=== PATIENT | female | born 1965 | race Caucasian/White ===

== ENCOUNTER 2021-10-27 10:39 | Emergency (ER) | payer OTHER ==
[~2021-10-27] VITALS: Ht 167.6 cm; Wt 67.6 kg
--- NOTE | 2021-10-27 10:50 | NUR ---
The patient is presented to ER for "Been having spasm/nausea/vomiting since last night worse now". Denies pain. In room air and denies SOB. Respiration regular and unlabored. The patient is attached to the monitor. Warm blanket provided for comfort. Will continue to monitor the patient.
[2021-10-27] MEDS ORDERED: ONDANSETRON HCL/PF 4 MG/2 ML VIAL IVP ONE (11:00)
[2021-10-27] MEDS ORDERED: LORAZEPAM INJ 2 MG/ML VIAL IV ONE (11:00)
[2021-10-27] MEDS ORDERED: IV NS 0.9% 1,000 ML BAG IV ONE (11:00)
[2021-10-27] MEDS ORDERED: ONDANSETRON HCL/PF 4 MG/2 ML VIAL ONE ×2 (11:08→12:58)
[2021-10-27] MEDS ORDERED: LORAZEPAM INJ 2 MG/ML VIAL ONE (11:10)
[2021-10-27 11:31] LABS: BASOPHILS # (AUTO) 0.1 K/uL (0.0-0.2); BASOPHILS % (AUTO) 0.5 % (0.0-2.0); EOSINOPHILS % (AUTO) 0.4 % (0.0-6.0); HEMATOCRIT 34 % (33-45); HEMOGLOBIN 11.1 g/dL (11.5-14.8); LYMPHOCYTES # (AUTO) 1.1 K/uL (0.8-4.8); LYMPHOCYTES % (AUTO) 7.8 % (20.0-44.0); MEAN CORPUSCULAR HGB CONC 32 g/dl (31.0-36.0); MEAN CORPUSCULAR VOLUME 83 fL (82-100); MONOCYTES # (AUTO) 0.9 K/uL (0.1-1.30); MONOCYTES % (AUTO) 6.4 % (2.0-12.0); NEUTROPHILS % (AUTO) 84.9 % (43.0-81.0); PLATELET COUNT (AUTO) 389 K/uL (150-450); RED BLOOD CELL COUNT(AUTO) 4.15 MIL/uL (4.0-5.2); WHITE BLOOD COUNT (AUTO) 14.2 K/uL (4.3-11.0)
[2021-10-27 11:42] LABS: CALCIUM, SERUM 9.4 mg/dL (8.5-10.1); POTASSIUM 3.2 mmol/L (3.5-5.1)
[2021-10-27 11:47] LABS: ALBUMIN 3.9 g/dL (3.4-5.0); BILIRUBIN,DIRECT 0.2 mg/dL (0.0-0.2); BILIRUBIN,TOTAL 0.7 mg/dL (0.2-1.0); TOTAL PROTEIN, SERUM 7.8 g/dL (6.4-8.2)
--- NOTE | 2021-10-27 11:59 | NUR ---
THE PATIENT STATES THAT SHE IS NOT ABLE TO GIVE URINE AT THIS TIME. WILL CONTINUE TO FOLLOW UP WITH THE PATIENT TO GET URINE SPECIMEN.
--- NOTE | 2021-10-27 12:55 | NUR ---
URINE COLLECTED AND SENT TO THE LAB
[2021-10-27] MEDS ORDERED: MORPHINE SULFATE INJ 4 MG/ML DISP.SYRIN ONE ×2 (12:59→13:53)
[2021-10-27] MEDS ORDERED: MORPHINE SULFATE INJ 2 MG/ML DISP.SYRIN IV ONE ×2 (13:00→14:00)
[2021-10-27] MEDS ORDERED: ONDANSETRON HCL/PF - ER 4 MG/2 ML VIAL IV ONE (13:00)
[2021-10-27 13:52] LABS: BILIRUBIN,URINE NEGATIVE (NEGATIVE); COLOR,URINE YELLOW (YELLOW); LEUKOCYTE ESTERASE ,URINE SMALL (NEGATIVE); NITRITE, URINE NEGATIVE (NEGATIVE); PH,URINE 8.5 (5.0-8.0); PROTEIN,URINE TRACE mg/dl (NEGATIVE); UGLUCOSE NEGATIVE (NEGATIVE); UROBILINOGEN,URINE 0.2 EU/dL (0.2)
[2021-10-27] MEDS ORDERED: KETOROLAC TROMETHAMINE 15 MG/ML VIAL ONE (14:25)
[2021-10-27] MEDS ORDERED: HYDROMORPHONE 1 MG/1 ML DISP.SYRIN ONE (14:25)
[2021-10-27] MEDS ORDERED: POTASSIUM CHLORIDE 20 MEQ TAB.PRT.SR PO ONE ×2 (14:30→14:39)
[2021-10-27] MEDS ORDERED: METOCLOPRAMIDE HCL 10 MG/2 ML VIAL ONE (14:39)
[2021-10-27] MEDS ORDERED: POTASSIUM CHLORIDE 10 MEQ TABLET.SA ONE (14:39)
--- NOTE | 2021-10-27 14:47 | NUR ---
The patient is alert and oriented x4. In room air and denies SOB. Respiration regular and unlabored. the patient denies pain. IV removed. Catheter intact and site benign. Pressure and 4x4 applied to site. No bleeding noted.Patient discharged to home in stable condition. Written and verbal after care instructions given. Patient verbalizes understanding of instruction. The patient is picked up by her visitor services technician.
[2021-10-27 14:48] LABS: BACTERIA,URINE Few /HPF (None Seen); RBC,URINE 0-2 /HPF (0-2); SQUAMOUS EPITHELIAL CELL,UR Few /HPF (None Seen)
[2021-10-27 14:49] VITALS: BP 103/75
[2021-10-27] MEDS ORDERED: METOCLOPRAMIDE HCL 10 MG/2 ML VIAL IV ONE (15:00)
== END 2021-10-27 14:50 | disposition home or self-care (01) ==
LOC: ER 10:46
DX: R11.2 Nausea with vomiting, unspecified (principal); M62.838 Other muscle spasm; E87.6 Hypokalemia; G20 Parkinson's disease
CPT/HCPCS: 99284; 96374; 96375; 96361; 96376; 85025; 80048; 87086; 83690; 80076; 81001; 36415; J2060; J2270 ×2; J2765; J2405 ×3; J7030; J1170; J1885

== ENCOUNTER 2021-11-01 09:57 | Emergency (ER) | payer OTHER ==
[~2021-11-01] VITALS: Ht 167.6 cm; Wt 67.6 kg
--- NOTE | 2021-11-01 10:04 | NUR ---
BIBS C/O GENERALIZED PAIN FROM PARKINSON'S FLARE UP, STATED SHE TOOK A TORADOL SHORT YESTERDAT AT 1700 AND HAD NO RELIEF.
--- NOTE | 2021-11-01 10:10 | NUR ---
DR VALENCIA AT BEDSIDE
[2021-11-01] MEDS ORDERED: KETOROLAC TROMETHAMINE INJ 30 MG/ML VIAL IV ONE (10:30)
[2021-11-01] MEDS ORDERED: LORAZEPAM INJ 2 MG/ML VIAL IV ONE ×3 (10:30→14:30)
[2021-11-01] MEDS ORDERED: LORAZEPAM INJ 2 MG/ML VIAL ONE ×3 (10:37→14:35)
[2021-11-01] MEDS ORDERED: KETOROLAC TROMETHAMINE 15 MG/ML VIAL ONE (10:38)
[2021-11-01 10:49] LABS: BASOPHILS # (AUTO) 0.1 K/uL (0.0-0.2); BASOPHILS % (AUTO) 0.8 % (0.0-2.0); EOSINOPHILS % (AUTO) 2.6 % (0.0-6.0); HEMATOCRIT 35 % (33-45); HEMOGLOBIN 10.9 g/dL (11.5-14.8); LYMPHOCYTES # (AUTO) 1.7 K/uL (0.8-4.8); LYMPHOCYTES % (AUTO) 16.7 % (20.0-44.0); MEAN CORPUSCULAR HGB CONC 31 g/dl (31.0-36.0); MEAN CORPUSCULAR VOLUME 88 fL (82-100); MONOCYTES % (AUTO) 9.4 % (2.0-12.0); NEUTROPHILS # (AUTO) 7.4 K/uL (1.8-8.9); NEUTROPHILS % (AUTO) 70.5 % (43.0-81.0); PLATELET COUNT (AUTO) 325 K/uL (150-450); RED BLOOD CELL COUNT(AUTO) 3.94 MIL/uL (4.0-5.2); WHITE BLOOD COUNT (AUTO) 10.4 K/uL (4.3-11.0)
[2021-11-01 10:58] LABS: CALCIUM, SERUM 8.6 mg/dL (8.5-10.1); CREATININE 1.1 mg/dL (0.6-1.3); POTASSIUM 3.8 mmol/L (3.5-5.1)
[2021-11-01 10:59] LABS: MAGNESIUM 2.6 mg/dL (1.8-2.4)
[2021-11-01] MEDS ORDERED: ONDANSETRON HCL/PF 4 MG/2 ML VIAL ONE ×2 (12:21→13:32)
[2021-11-01] MEDS ORDERED: MORPHINE SULFATE INJ 2 MG/ML DISP.SYRIN ONE (12:21)
[2021-11-01] MEDS ORDERED: ONDANSETRON HCL/PF - ER 4 MG/2 ML VIAL IV ONE ×2 (12:30→13:30)
[2021-11-01] MEDS ORDERED: MORPHINE SULFATE INJ 2 MG/ML DISP.SYRIN IV ONE (12:30)
[2021-11-01] MEDS ORDERED: DIAZ2TAB PO (14:45)
[2021-11-01 15:48] VITALS: BP 135/81
--- NOTE | 2021-11-01 15:48 | NUR ---
Patient discharged to home in stable condition. Written and verbal after care instructions given. Patient verbalizes understanding of instruction.IV removed. Catheter intact and site benign. Pressure and 4x4 applied to site. No bleeding noted.
== END 2021-11-01 15:48 | disposition home or self-care (01) ==
LOC: ER 10:10
DX: M62.838 Other muscle spasm (principal); R52 Pain, unspecified; Z79.899 Other long term (current) drug therapy
CPT/HCPCS: 99285; 96374; 96375; 96376; 85025; 80048; 83735; 36415; J2060 ×3; J2405 ×4; J2270; J1885

== ENCOUNTER 2021-11-21 18:12 | Emergency (ER) | payer OTHER ==
[~2021-11-21] VITALS: Ht 167.6 cm; Wt 69.9 kg
[~2021-11-21 18:12] MED LIST: DIAZ2TAB PO
--- NOTE | 2021-11-21 18:40 | NUR ---
RECEIVED PT IN ROOM #3 ER, PT IS A/Ox4, C/O MUSCLE SPASM DUE TO PARKINSONS DIS. VSS STABLE , CONTINUE TO MONITOR
[2021-11-21] MEDS ORDERED: LORAZEPAM INJ 2 MG/ML VIAL ONE (18:56)
[2021-11-21] MEDS: LORAZEPAM INJ 2 MG/ML VIAL IM ONE (19:02)
--- NOTE | 2021-11-21 19:13 | NUR ---
PT ON BED , VSS STABLE , WILL ENDORSE TO VIDEO TAPE EDITOR NURSE FOR CONTINUITY OF CARE
[2021-11-21] MEDS ORDERED: TRAM50TA2 PO (19:38)
[2021-11-21] MEDS ORDERED: DIAZ10TA PO (19:38)
[2021-11-21] MEDS ORDERED: TRAMADOL HCL 50 MG TABLET ONE (19:53)
[2021-11-21] MEDS: TRAMADOL HCL 50 MG TABLET PO ONE (19:56)
[2021-11-21 20:09] VITALS: BP 138/80
--- NOTE | 2021-11-21 20:09 | NUR ---
Patient discharged to home in stable condition. Written and verbal after care instructions given. Patient verbalizes understanding of instruction.
== END 2021-11-21 20:10 | disposition home or self-care (01) ==
LOC: ER 18:21
DX: G20 Parkinson's disease (principal); M62.838 Other muscle spasm; G89.29 Other chronic pain; Z79.899 Other long term (current) drug therapy
CPT/HCPCS: 99283; 96372; J2060; J7030

== ENCOUNTER 2021-12-26 16:04 | Inpatient (IN) | payer OTHER ==
[~2021-12-26] VITALS: Ht 162.6 cm; Wt 69.4 kg
[~2021-12-26 16:04] MED LIST changes: +DIAZ10TA PO; +TRAM50TA2 PO
[2021-12-26] MEDS ORDERED: HYDROCODONE/APAP 10/325MG TABLET ONE (16:26)
[2021-12-26] MEDS ORDERED: KETOROLAC TROMETHAMINE INJ 30 MG/ML VIAL ONE (16:27)
[2021-12-26] MEDS ORDERED: HYDROCODONE/APAP 10/325MG TABLET PO ONE (16:30)
[2021-12-26] MEDS ORDERED: KETOROLAC TROMETHAMINE INJ 30 MG/ML VIAL IM ONE (16:30)
--- NOTE | 2021-12-26 16:59 | NUR ---
Patient arrived to ER in pain and requesting medications, analgesic medications administered as ordered and cold packs applied to left knee and ankle
[2021-12-26] MEDS ORDERED: HYDROMORPHONE 1 MG/1 ML DISP.SYRIN ONE (17:05)
[2021-12-26] MEDS ORDERED: HYDROMORPHONE 1 MG/1 ML DISP.SYRIN IM ONE (17:30)
--- NOTE | 2021-12-26 17:32 | NUR ---
PAGE ORTHO BINGO ATTENDANT
[2021-12-26] MEDS ORDERED: DIAZEPAM 5 MG TABLET ONE (18:07)
[2021-12-26 18:18] LABS: BASOPHILS % (AUTO) 0.2 % (0.0-2.0); EOSINOPHILS % (AUTO) 0.2 % (0.0-6.0); HEMATOCRIT 34 % (33-45); HEMOGLOBIN 10.8 g/dL (11.5-14.8); LYMPHOCYTES # (AUTO) 1.7 K/uL (0.8-4.8); LYMPHOCYTES % (AUTO) 8.5 % (20.0-44.0); MEAN CORPUSCULAR HGB CONC 32 g/dl (31.0-36.0); MEAN CORPUSCULAR VOLUME 85 fL (82-100); MONOCYTES # (AUTO) 1.5 K/uL (0.1-1.30); MONOCYTES % (AUTO) 7.2 % (2.0-12.0); NEUTROPHILS # (AUTO) 17.2 K/uL (1.8-8.9); NEUTROPHILS % (AUTO) 83.9 % (43.0-81.0); RED BLOOD CELL COUNT(AUTO) 4.04 MIL/uL (4.0-5.2); WHITE BLOOD COUNT (AUTO) 20.5 K/uL (4.3-11.0)
[2021-12-26] MEDS ORDERED: DIAZEPAM 5 MG TABLET PO ONE (18:30)
[2021-12-26 18:34] LABS: CALCIUM, SERUM 8.8 mg/dL (8.5-10.1); POTASSIUM 3.6 mmol/L (3.5-5.1)
[2021-12-26 18:50] LABS: PLATELET COUNT (AUTO) 491 K/uL (150-450)
--- NOTE | 2021-12-26 18:50 | NUR ---
COVID SWAB DONE
[2021-12-26] MEDS ORDERED: MORPHINE SULFATE INJ 2 MG/ML DISP.SYRIN IV ONE (19:30)
[2021-12-26] MEDS ORDERED: MORPHINE SULFATE INJ 4 MG/ML DISP.SYRIN ONE (19:31)
[2021-12-26] MEDS ORDERED: Z GUARD REMEDY 4 OZ OINT TP PRN (20:00)
[2021-12-26] MEDS ORDERED: MAGNESIUM HYDROXIDE 30 ML UDC PO PRN (20:00)
--- NOTE | 2021-12-26 20:21 | NUR ---
BED 304-2
--- NOTE | 2021-12-26 20:29 | NUR ---
REPORT GIVEN TO RAFAL CALVERT
--- NOTE | 2021-12-26 20:45 | NUR ---
PATIENT TRANSFERRED, NO ACUTE DISTRESS NOTTED.
[2021-12-26] MEDS: HYDROMORPHONE INJ 2 MG/ML DISP.SYRIN IV PRN (21:03)
[2021-12-26] MEDS: IV NS 0.9% 1,000 ML IV PRN (21:11)
[2021-12-26] MEDS: HYDROCODONE/APAP 10/325MG TABLET PO PRN (22:33)
[2021-12-26] MEDS ORDERED: CEFAZOLIN 2 GM ONE (22:47)
[2021-12-26] MEDS: CEFAZOLIN 1 GM in IV D5W 50 ML IV SCH (23:35)
--- NOTE | 2021-12-27 00:10 | NUR ---
RN NOTE PT A/O X4 ABLE TO MAKE NEED KNOWN PT KEEPS CRYING AND SEEMS VERY ANXIOUS AND SCARED AT THE POSSIBILITY OF SURGERY PRN MEDICATION PROVIDED COMFORT CARE PROVIDED BUT PT IS UN CONSOLABLE AT THIS TIME. PT NOTED WITH IV ACCESS ON THE LAC 22 G RUNNING NS @90 ML/HR TOLERATING WELL. [facility] WITHIN REACH TABLE WITHIN REACH. ALL NEEDS MET.
[2021-12-27] MEDS ORDERED: DIAZEPAM 5 MG TABLET PO ONE (00:30)
--- NOTE | 2021-12-27 00:45 | NUR ---
RN NOTES PT CRYING UN CONSOLABLY VERY UP SET WITH STAFF PT KEEPS STATING " YOU ALL KEEP SAYING IN HAVING SURGERY ON TUESDAY I HAVEN'T EVEN SEEN A DR I DON'T APPRECIATE BEING BERATED" TRIED TO COMFORT PT AND RESTATED TO HER THAT WE DON'T NOT KNOW YET THAT SHE WILL HAVE A CONSULT WITH THE SURGEON WHO CAN GIVE HER MORE INFORMATION. HOWEVER PT IS VERY UPSET AND START CRYING MORE STATING " IM SCARED THIS WHOLE EXPERIENCE IS SCARY IM SORRY IF IM BEING RUDE TO YOU BUT YOU HAVE TO UNDERSTAND" PT CONTINUOS TO CRY. RECEIVED AND ORDER FROM VIJAYA NELSON FOR VALIUM 5MG X1 OFFERED VALUIM TO THE PT PT BECAME UPSET " ARE YOU SAYING MY PAIN ISN'T REAL SO YOUR GIVING ME ANXIETY MEDICATION I KNOW ABOUT ANXIETY I'VE HAD IT FOR 20 YEARS I DON'T NEED YOU TO TELL ME IM ANXIOUS I KNOW!" EXPLAINED TO PT THAT WAS NOT THE INTENTION AND THAT SHE SHARED HOW SHE HAS BEEN HAVING A HARD DAY AND WE JUST WANTED TO MAKE HER MORE COMFORTABLE OFFERED HER IF SHE NEEDED REPOSITIONING ICE PACK ANYTHING ELSE TO HELP HER FEEL AT EASE. PT TOOK THE VALIUM BUT IS STILL VERY UPSET.CHARGE NURSE CAME IN TO SPEAK WITH PT STATED " IM NOT A GOSSIP COLUMN OR SOMETHING FOR ALL YOU PEOPLE TO COME IN HERE AND STARE AND LAUGH AT ME" TOLD THE PT WE WOULD GIVE HER SOME SPACE TO COOL DOWN AND WILL COME BACK ONCE SHE FEELS LIKE SHE IS READY TO SPEAK TO ME.PT KEEPS MISINTERPRETING EVERYTHING STAFF SAYS TO HER AT THIS TIME SHE IS TOO UPSET.
[2021-12-27 01:21] LABS: BILIRUBIN,URINE SMALL (NEGATIVE); COLOR,URINE YELLOW (YELLOW); LEUKOCYTE ESTERASE ,URINE SMALL (NEGATIVE); NITRITE, URINE NEGATIVE (NEGATIVE); PROTEIN,URINE TRACE mg/dl (NEGATIVE); UGLUCOSE NEGATIVE (NEGATIVE); UROBILINOGEN,URINE 0.2 EU/dL (0.2)
[2021-12-27 01:34] LABS: BACTERIA,URINE Few /HPF (None Seen); SQUAMOUS EPITHELIAL CELL,UR Few /HPF (None Seen)
[2021-12-27] MEDS: HYDROMORPHONE INJ 2 MG/ML DISP.SYRIN IV PRN ×5 (01:47→19:35)
--- NOTE | 2021-12-27 01:47 | NUR ---
MS RN NOTE COVERING PRIMARY RN WHILE ON LUNCH BREAK, PATIENT REPORTING 8/10 LEFT HIP AND LEG PAIN. DILAUDID 2 MG IV GIVEN ORDERED. WILL CONTINUE TO MONITOR PATIENT
--- NOTE | 2021-12-27 02:00 | NUR ---
RN NOTES PT KEEPS LAYING ON HER LEFT SIDE COMPLETELY KEEP REMINDING PT THAT SHE DOESN'T PUT PRESSURE ON THE LEFT LEG IT WILL ONLY CAUSE MORE PAIN.
[2021-12-27] MEDS: HYDROCODONE/APAP 10/325MG TABLET PO PRN ×4 (04:00→21:13)
[2021-12-27] MEDS: MAG HYDROX/AL HYDROX/SIMETH 30 ML UDC PO PRN (04:06)
[2021-12-27] MEDS: ONDANSETRON HCL/PF 4 MG/2 ML VIAL IVP PRN (04:41)
--- NOTE | 2021-12-27 04:58 | NUR ---
RN NOTE AR HAD EMESIS X2 PT UPSET CRYING " IM EMBARRASSED IM SORRY I FEEL LIKE YOU ALL HATE ME" EXPRESSED TO PT THAT WE ARE HERE TO HELP HER AND ITS NO BOTHER SHE DOESN'T HAVE TO APOLOGIZE OR FEEL BAD.PT IS CRYING TRYING TO CONSOLE HER SHE SEEMS MORE AT EASE AT THIS TIME.
[2021-12-27 06:13] LABS: BASOPHILS # (AUTO) 0.1 K/uL (0.0-0.2); BASOPHILS % (AUTO) 0.3 % (0.0-2.0); EOSINOPHILS % (AUTO) 0.1 % (0.0-6.0); HEMATOCRIT 29 % (33-45); HEMOGLOBIN 9.2 g/dL (11.5-14.8); LYMPHOCYTES # (AUTO) 1.6 K/uL (0.8-4.8); LYMPHOCYTES % (AUTO) 7.2 % (20.0-44.0); MEAN CORPUSCULAR HGB CONC 32 g/dl (31.0-36.0); MEAN CORPUSCULAR VOLUME 86 fL (82-100); MONOCYTES # (AUTO) 2.1 K/uL (0.1-1.30); MONOCYTES % (AUTO) 9.4 % (2.0-12.0); NEUTROPHILS # (AUTO) 18.8 K/uL (1.8-8.9); PLATELET COUNT (AUTO) 341 K/uL (150-450); RED BLOOD CELL COUNT(AUTO) 3.35 MIL/uL (4.0-5.2); WHITE BLOOD COUNT (AUTO) 22.6 K/uL (4.3-11.0)
[2021-12-27 06:21] LABS: CALCIUM, SERUM 8.7 mg/dL (8.5-10.1); CREATININE 1.2 mg/dL (0.6-1.3); MAGNESIUM 2.7 mg/dL (1.8-2.4); PHOSPHORUS 5.8 mg/dL (2.5-4.9); POTASSIUM 4.3 mmol/L (3.5-5.1)
[2021-12-27] MEDS: CEFAZOLIN 1 GM in IV D5W 50 ML IV SCH ×3 (06:28→21:12)
--- NOTE | 2021-12-27 06:33 | NUR ---
RN NOTE PT IN BED AWAKE IN NO NOTED DISTRESS. PRN PAIN MANAGEMENT PROVIDED NEEDS, PT HAS NOT HAD ANY OTHER EPISODES OF EMESIS OR NAUSEA. WILL ENDORSE TO DAY SHIFT NURSE.
[2021-12-27 08:00] VITALS: BP 129/64
[2021-12-27] MEDS: DIAZEPAM 2 MG TABLET PO SCH ×2 (09:22→16:32)
[2021-12-27 16:00] VITALS: BP 138/51
[2021-12-27] MEDS ORDERED: QUETIAPINE FUMARATE 25 MG TABLET PO ONE (17:00)
[2021-12-27] MEDS: DIAZEPAM 10 MG TABLET PO SCH (18:00)
--- NOTE | 2021-12-27 19:30 | NUR ---
MS RN OPENING NOTE RECEIVED PT AWAKE IN BED. A/O X4 AND ABLE TO MAKE NEEDS KNOWN. PT STABLE ON ROOM AIR. NO SOB OR S/S OF RESPIRATORY DISTRESS. BREATHING EVEN AND UNLABORED. IV ACCESS CHESTER MIDLINE, INTACT AND PATENT, RUNNING NS @ 90 ML/HR. FONG CATHETER IN PLACE, INTACT AND PATENT, DRAINING BY GRAVITY. COMPLAINTS OF PAIN 10/10 OF L KNEE, WILL ADMINISTER PAIN MEDICATION ORDERED. SAFETY PRECAUTIONS IN PLACE. BED IN LOWEST LOCKED POSITION, HOB ELEVATED, SIDE RAILS UP X3, AND CALL LIGHT AND TABLE WITHIN REACH. ALL NEEDS MET AT THIS TIME.
--- NOTE | 2021-12-27 19:33 | NUR ---
RN CLOSING NOTE PATIENT RECEIVED IN BED AND AWAKE. A/OX4 AND ABLE TO VERBALIZE ALL NEEDS, HOWEVER OBSERVED TO HAVE EXTREME ANXIOUSNESS THROUGHOUT SHIFT. IV ACCESS TO LAC DISLODGED ON SHIFT; CHANGED TO CHESTER MIDLINE 18G. CURRENTLY INTACT AND PATENT AT THIS TIME. CONTINUOUS C/O BODY PAIN THROUGHOUT SHIFT. RECEIVED PRN NORCO AND DILAUDID SCHEDULED PRN . PATIENT CLAIMED MEDICATIONS NOT EFFECTIVE. ONE TIME DOSE OF SEROQUEL 50MG ALSO GIVEN PER PHYSICIAN ORDER. MEDICATION NOT EFFECTIVE. PATIENT REFUSED TO SIGN CONSENT FOR SCHEDULED SURGERY. CHARGE NURSE AND PHYSICIAN MADE AWARE. WILL ENDORSE TO ONCOMING NURSE. FONG CATHETER IN PLACE AND FLOWING DARK YELLOW URINE. SAFETY MEASURES IN PLACE WITH BED LOW AND LOCKED. SIDE RAIL UP AND CALL LIGHT WITHIN REACH. WILL CONT TO MONITOR.
--- NOTE | 2021-12-27 19:35 | NUR ---
RN NOTE PT COMPLAINED OF PAIN 10/10 OF L KNEE. ADMINISTERED DILAUDID 2 MG FOR SEVERE PAIN ORDERED. MADE COMFORTABLE IN BED. ALL NEEDS MET AT THIS TIME.
[2021-12-27 20:00] VITALS: BP 131/77
[2021-12-27] MEDS: IV NS 0.9% 1,000 ML IV PRN (20:30)
--- NOTE | 2021-12-27 21:13 | NUR ---
RN NOTE PT COMPLAINED OF PAIN 8/10 OF L KNEE. ADMINISTERED NORCO 10-325 MG FOR SEVERE PAIN ORDERED. MADE COMFORTABLE IN BED. ALL NEEDS MET AT THIS TIME.
[2021-12-27] MEDS: ZOLPIDEM TARTRATE 5 MG TABLET PO PRN (22:16)
--- NOTE | 2021-12-27 22:16 | NUR ---
RN NOTE PT COMPLAINED OF INSOMNIA. ADMINISTERED AMBIEN 5 MG FOR INSOMNIA ORDERED. MADE COMFORTABLE IN BED. ALL NEEDS MET AT THIS TIME.
[2021-12-28] MEDS: HYDROMORPHONE INJ 2 MG/ML DISP.SYRIN IV PRN ×3 (00:53→09:07)
--- NOTE | 2021-12-28 00:53 | NUR ---
RN NOTE PT COMPLAINED OF PAIN 10/10 OF L KNEE. ADMINISTERED DILAUDID 2 MG FOR SEVERE PAIN ORDERED. BP 120/74 HR 92 R 18 O2 SAT 96% TEMP 98.0. MADE COMFORTABLE IN BED. ALL NEEDS MET AT THIS TIME.
[2021-12-28] MEDS: HYDROCODONE/APAP 10/325MG TABLET PO PRN (02:22)
--- NOTE | 2021-12-28 02:25 | NUR ---
covering nurse note patient c/o 10/10 pain in the fx area. Given norco 10 PRN as ordered. primary nurse aware.
[2021-12-28] MEDS: CEFAZOLIN 1 GM in IV D5W 50 ML IV SCH ×2 (04:56→12:08)
--- NOTE | 2021-12-28 07:10 | NUR ---
MS RN CLOSING NOTE PT AWAKE IN BED. A/O X4 AND ABLE TO MAKE NEEDS KNOWN. PT STABLE ON ROOM AIR. NO SOB OR S/S OF RESPIRATORY DISTRESS. BREATHING EVEN AND UNLABORED. IV ACCESS CHESTER MIDLINE, INTACT AND PATENT, RUNNING NS @ 90 ML/HR. FONG CATHETER IN PLACE, INTACT AND PATENT, DRAINING BY GRAVITY. ALL DUE MEDS GIVEN ORDERED. KEPT NPO AFTER MIDNIGHT. SAFETY PRECAUTIONS IN PLACE AT ALL TIMES. BED IN LOWEST LOCKED POSITION, HOB ELEVATED, SIDE RAILS UP X3, AND CALL LIGHT AND TABLE WITHIN REACH. ALL NEEDS MET AT THIS TIME AND WILL ENDORSE TO ONCOMING NURSE FOR KALEB.
--- NOTE | 2021-12-28 07:15 | NUR ---
MS RN OPENING NOTES: RECEIVED PT AWAKE, ALERT AND ORIENTED X 4 AND ABLE TO VERBALIZED NEEDS. NO SOB OR CARDIAC DISTRESS NOTED, AFEBRILE. MAINTAINED ON NPO. NOTED WITH IV ACCESS ON CHESTER MIDLINE PATENT, INTACT AND INFUSING NS @90ML/HR. NOTED WITH FC DRAINING CLEAR YELLOW COLORED URINE BY GRAVITY. SAFETY PRECAUTIONS MAINTAINED: BED LOCKED AND IN LOWEST POSITION, SIDE RAILS UP X 2 CALL LIGHT AND BED SIDE TABLE IN EASY REACH FOR HELP. WILL MONITOR PT ACCORDINGLY.
[2021-12-28 08:00] VITALS: BP 139/72
[2021-12-28 09:09] LABS: BASOPHILS % (AUTO) 0.2 % (0.0-2.0); EOSINOPHILS % (AUTO) 1.2 % (0.0-6.0); HEMATOCRIT 23 % (33-45); HEMOGLOBIN 7.2 g/dL (11.5-14.8); LYMPHOCYTES # (AUTO) 1.6 K/uL (0.8-4.8); MEAN CORPUSCULAR HGB CONC 32 g/dl (31.0-36.0); MEAN CORPUSCULAR VOLUME 85 fL (82-100); MONOCYTES # (AUTO) 1.3 K/uL (0.1-1.30); MONOCYTES % (AUTO) 8.8 % (2.0-12.0); NEUTROPHILS # (AUTO) 11.3 K/uL (1.8-8.9); NEUTROPHILS % (AUTO) 78.8 % (43.0-81.0); PLATELET COUNT (AUTO) 303 K/uL (150-450); RED BLOOD CELL COUNT(AUTO) 2.66 MIL/uL (4.0-5.2); WHITE BLOOD COUNT (AUTO) 14.3 K/uL (4.3-11.0)
[2021-12-28 09:16] LABS: CALCIUM, SERUM 8.3 mg/dL (8.5-10.1); CREATININE 0.9 mg/dL (0.6-1.3); POTASSIUM 3.5 mmol/L (3.5-5.1)
[2021-12-28 09:22] LABS: ALBUMIN 3.2 g/dL (3.4-5.0); BILIRUBIN,TOTAL 0.4 mg/dL (0.2-1.0); MAGNESIUM 2.5 mg/dL (1.8-2.4); PHOSPHORUS 3.5 mg/dL (2.5-4.9); TOTAL PROTEIN, SERUM 6.4 g/dL (6.4-8.2)
[2021-12-28] MEDS: IV NS 0.9% 1,000 ML IV PRN (09:51)
--- NOTE | 2021-12-28 09:56 | NUR ---
WOUND CARE CONSULT: PT PRESENTS WITH SKIN TEARS TO BILATERAL KNEES, PRESENT ON ADMISSION. PT REFUSED TO BE TURNED FOR FULL SKIN ASSESSMENT. RECOMMENDATIONS MADE FOR SKIN PROTECTION AND WOUND CARE. DISCUSSED WITH NURSING STAFF. MD IN AGREEMENT WITH PLAN OF CARE.
--- NOTE | 2021-12-28 09:58 | NUR ---
RN NOTES: SHEEBA (LIZETTE) ORDERED 1 PRBC TO TRANSFUSE PRIOR TO ORIF SURGERY, TYPE AND CROSS STAT. INFORMED PA THAT PT IS DUE FOR DIAZEPAM PO, PA OKAYED AND WITH VERY LITTLE WATER TO SIP. ORDERS NOTED AND CARRIED OUT. PT WENT DOWN FOR CT SCAN.
[2021-12-28] MEDS: DIAZEPAM 2 MG TABLET PO SCH ×2 (10:00→17:00)
[2021-12-28] MEDS: ONDANSETRON HCL/PF 4 MG/2 ML VIAL IVP PRN ×2 (10:18→18:45)
--- NOTE | 2021-12-28 10:30 | NUR ---
RN NOTES PATIENT SIGNED CONSENTS
[2021-12-28] MEDS ORDERED: BUPIVACAINE 0.5 % PF 150 MG/30 ML VIAL ONE (12:11)
[2021-12-28] MEDS ORDERED: POLYMYXIN B SULFATE 0 UNITS ONE (12:12)
[2021-12-28] MEDS ORDERED: HYDROMORPHONE INJ 2 MG/ML DISP.SYRIN ONE (12:33)
[2021-12-28] MEDS ORDERED: FENTANYL PF 100MCG/2ML AMPUL ONE ×2 (12:33)
[2021-12-28] MEDS ORDERED: ROCURONIUM BROMIDE 50 MG/5 ML ONE (12:34)
[2021-12-28] MEDS ORDERED: MIDAZOLAM HCL 2 MG/2ML VIAL ONE (12:34)
[2021-12-28] MEDS ORDERED: FAMOTIDINE/PF INJ 20 MG/2 ML VIAL IV ONE (12:34)
[2021-12-28] MEDS: CITALOPRAM HYDROBROMIDE 20 MG TABLET PO SCH (15:00)
[2021-12-28 17:15] VITALS: BP 106/56
--- NOTE | 2021-12-28 17:16 | NUR ---
RN NOTES: 1500- CITALOPRAM PO NOT GIVEN PT STILL IN SURGERY. 1700-DIAZEPAM PO NOT GIVEN PT VS IS LOW AND PT STILL GROGGY.
--- NOTE | 2021-12-28 17:18 | NUR ---
RN NOTES: RECEIVED PT S/P LEFT FEMUR ORIF. PT STILL GROGGY BUT ABLE TO RESPONSE TO VERBAL STIMULI. NO SOB OR CARDIAC DISTRESS NOTED. RECEIVED REPORT FROM RAFAL VARNER-PT BP IS ON LOWS,97/54, 98% O2 SATURATION AT ROOM AIR, HR 122, TEMP 97.6. NOTED WITH LEFT HIP IMMOBILIZER, DRESSING INTACT WITHOUT ANY UNUSUAL DISCHARGES. RECEIVED ORDERS POST OP: RESUME PRE POP ORDERS, ADVANCE DIET,NWM LLE, KNEE IMMOBILIZER. ANCEF 1 GRAM IVPB Q 8HRS FOR 3 DOSES-STARTED ALREADY IN OR 1330PM. IN 24HOURS IF HEMOGLOBIN LEVEL >9 START LOVENOX 40MG SQ DAILY. ORDERS NOTED AND CARRIED OUT. WILL MONITOR PT ACCORDINGLY.
[2021-12-28 17:30] VITALS: BP 106/56
--- NOTE | 2021-12-28 17:30 | NUR ---
RN NOTES: PT STILL ASLEEP EASILY AROUSED WITH STIMULI, VS BP 106/56, HR 115, RR 20, 97.8F, 98%.
[2021-12-28 18:00] VITALS: BP_SYST 104; BP_SYST 119; BP_DIAS 68; BP_DIAS 72
[2021-12-28] MEDS: DIAZEPAM 10 MG TABLET PO SCH (18:21)
--- NOTE | 2021-12-28 18:48 | NUR ---
MS RN CLOSING NOTES: PT IN BED AWAKE, ALERT ORIENTED X 4 AND ABLE TO VERBALIZED NEEDS. S/P ORIF ON LEFT FEMUR AND WITH IMMOBILIZER NOTED. NO SOB OR CARDIAC DISTRESS NOTED. IV ACCESS ON CHESTER MIDLINE PATENT AND INTACT INFUSING IV NS 1L @90ML/HR. SAFETY MEASURES MAINTAINED; BED LOCKED AND IN LOWEST POSITION, SIDE RAILS UP X 2 CALL LIGHT IN EASY REACH FOR HELP. WILL MONITOR PT ACCORDINGLY.
[2021-12-28 19:00] VITALS: BP 98/58
[2021-12-28 20:00] VITALS: BP 78/42
--- NOTE | 2021-12-28 20:00 | NUR ---
RN OPENING NOTE PATIENT AWAKE IN BED. A/OX4. NO S/S OF DISTRESS, BREATHING WITHOUT DIFFICULTY ON ROOM AIR. CHESTER MIDLINE #18 NS 90ML/HR. SAFETY MEASURES IN PLACE: BED LOCKED AND AT LOWEST POSITION, RAILS UP X2. CALL BARRY WITHIN REACH. WILL CONTINUE TO MONITOR PATIENT.
[2021-12-28] MEDS ORDERED: IV NS 0.9% 1,000 ML IV PRN (20:18)
[2021-12-28] MEDS ORDERED: IV NS 0.9% 500 ML IV ONE (20:30)
--- NOTE | 2021-12-28 20:34 | NUR ---
RN NOTE CONTACTED DR. MA REGARDING PRBC ORDER CLARIFICATION. CLARIFICATION WAS GIVEN FOR STAT H/H 1 L NS BOLUS, AND CHANGE STANDING NS IV RATE ORDER FROM 90ML/HR TO 100ML/HR. 2 UNITS PRBC ORDERED PATIENT STABLE; WILL CONTINUE TO MONITOR PATIENT.
[2021-12-28] MEDS ORDERED: IV NS 0.9% 1,000 ML IV ONE (21:00)
[2021-12-28] MEDS: ANCEF 1 GM/50 ML D5W IV SCH ×2 (21:11)
--- NOTE | 2021-12-28 21:34 | NUR ---
RN NOTE NOTIFIED DR. MA OF 1L NS BOLUSED NOW ON 100ML/HR BP INCREASED TO 90/50 AWAITING LAB FOR 2 UNITS PRBCs TO BE READY. PATIENT STABLE; WILL CONTINUE TO MONITOR PATIENT.
[2021-12-28] MEDS: ACETAMINOPHEN 325 MG TABLET PO PRN (22:06)
--- NOTE | 2021-12-28 22:20 | NUR ---
RN NOTE PATIENT HAS DEVELOPED A FEVER OF 101.1F. PATIENT WAS GIVEN TYLENOL 650MG PO AND DR. MA NOTIFIED. O2 SAT AT 88%; PATIENT WAS PLACED ON 2L NC. MD ORDERED INCENTIVE SPIROMETER FOR 10MINS EVERY HOUR. PATIENT REMAINS OTHERWISE STABLE; WILL CONTINUE TO MONITOR PATIENT.
--- NOTE | 2021-12-28 23:50 | NUR ---
RN NOTE PATIENT'S TEMP REMAINS ELEVATED AT 100.3F. ON-CALL MD, VIJAYA NELSON, CONTACTED FOR ORDERS. MD STATED RECHECK TEMP IN 30 MIN AND UPDATE HER.
[2021-12-29] VITALS (10 sets, daily range): BP systolic 92–130; BP diastolic 51–85
[2021-12-29] MEDS ORDERED: ACETAMINOPHEN 650 MG/SUPP.RECT RC ONE (00:30)
--- NOTE | 2021-12-29 01:16 | NUR ---
RN NOTE PATIENT'S FEVER REMAINS; ORDER BY MD FOR 1000MG TYLENOL SUPP GIVEN. PATIENT EXTREMELY AGITATED. SHE IS TRYING TO GET UP OUT OF BED. MD CONTACTED AGAIN FOR ORDERS
[2021-12-29] MEDS: HYDROCODONE/APAP 10/325MG TABLET PO PRN (01:47)
--- NOTE | 2021-12-29 03:45 | NUR ---
RAFAL REVELES PATIENT STABLE; BLOOD TRANSFUSION RUNNING 15 MINUTES NOW WITH NO S/S OF REACTION. VS WNL (SEE TRANSFUSION NOTES/RECORD). PATIENT STABLE. WILL CONTINUE TO MONITOR. Addendum: 12/29/21 at 0616 by JOSE SOSA RN RN CLOSE = RAFAL TELLES
[2021-12-29] MEDS: ANCEF 1 GM/50 ML D5W IV SCH ×4 (05:30→14:22)
--- NOTE | 2021-12-29 06:09 | NUR ---
RN NOTE PATIENT COMPLETED 1 UNIT OF PRBCs. NO S/S OF REACTION; PATIENT STABLE; VS WNL (SEE TRANSFUSION RECORD). EMPTY BLOOD UNIT POUCH AND ASSOCIATED PRODUCTS DISPOSED OF IN PROPER BIOHAZARD BIN. PATIENT IMPROVING. WILL CONTINUE TO MONITOR.
--- NOTE | 2021-12-29 06:34 | NUR ---
RN CLOSING NOTE PATIENT ASLEEP IN BED. A/OX4. NO S/S OF DISTRESS, BREATHING WITHOUT DIFFICULTY ON 1L NC. LFA #18 INTACT AND PATENT. SAFETY MEASURES IN PLACE: BED LOCKED AND AT LOWEST POSITION, RAILS UP X2, CALL BARRY WITHIN REACH. WILL ENDORSE TO NEXT SHIFT FOR KALEB.
--- NOTE | 2021-12-29 07:30 | NUR ---
MS RN OPENING NOTE Patient in bed, awake. A/O x 4, able to make needs known. On room air, breathing evenly and unlabored. No SOB or s/s of distress noted. IV access on LFA #18 SL, intact and patent. Brar catheter in place draining to a yellow colored urine. Safety precautions in place: bed in low, locked position; siderails up x 2; call light within reach. Will continue to monitor.
[2021-12-29] MEDS: HYDROMORPHONE INJ 2 MG/ML DISP.SYRIN IV PRN ×4 (08:11→21:13)
[2021-12-29] MEDS: DIAZEPAM 2 MG TABLET PO SCH (08:53)
[2021-12-29] MEDS: CITALOPRAM HYDROBROMIDE 20 MG TABLET PO SCH (08:53)
[2021-12-29] MEDS: ACETAMINOPHEN 325 MG TABLET PO PRN ×2 (09:57→17:21)
--- NOTE | 2021-12-29 10:00 | NUR ---
RN NOTE Received order for blood transfusion. Signed consent in chart. VS taken at 0945 as follows: BP 126/80, HR 110, RR 20, Temp 98.3, SPO2 99%. Blood picked up from blood bank. Blood verified by 2 RNs. Blood transfusion started. Will continue to monitor patient.
--- NOTE | 2021-12-29 10:15 | NUR ---
RN NOTE Patient remains stable with ff VS: BP 115/51, HR 104, RR 20, Temp 98.4, SPO2 97%. No transfusion reactions noted. Will continue to monitor.
--- NOTE | 2021-12-29 11:15 | NUR ---
RN NOTE Patient remains stable with ff VS: BP 116/60, HR 100, RR 19, Temp 98, SPO2 98%. No transfusion reactions noted. Will continue to monitor.
--- NOTE | 2021-12-29 13:06 | NUR ---
RN NOTE Blood transfusion ended. No transfusion reactions noted. Patient remains stable with ff VS: BP 115/70, HR 95, RR 19, Temp 97.8, SPO2 100%. Will continue to monitor patient.
[2021-12-29 14:36] LABS: EOSINOPHILS % (AUTO) 0.2 % (0.0-6.0); HEMATOCRIT 28 % (33-45); HEMOGLOBIN 8.8 g/dL (11.5-14.8); LYMPHOCYTES % (AUTO) 3.3 % (20.0-44.0); MEAN CORPUSCULAR HGB CONC 31 g/dl (31.0-36.0); MEAN CORPUSCULAR VOLUME 87 fL (82-100); MONOCYTES # (AUTO) 1.6 K/uL (0.1-1.30); NEUTROPHILS # (AUTO) 28.5 K/uL (1.8-8.9); NEUTROPHILS % (AUTO) 91.5 % (43.0-81.0); PLATELET COUNT (AUTO) 194 K/uL (150-450); RED BLOOD CELL COUNT(AUTO) 3.23 MIL/uL (4.0-5.2)
[2021-12-29 15:03] LABS: CREATININE 0.9 mg/dL (0.6-1.3); MAGNESIUM 2.4 mg/dL (1.8-2.4); PHOSPHORUS 2.8 mg/dL (2.5-4.9); POTASSIUM 3.4 mmol/L (3.5-5.1)
[2021-12-29 15:06] LABS: IRON, SERUM 130 ug/dl (50-175); TOTAL IRON BINDING CAPACITY 285 ug/dl (250-450)
[2021-12-29 16:11] LABS: WHITE BLOOD COUNT (AUTO) 31.2 K/uL (4.3-11.0)
--- NOTE | 2021-12-29 16:20 | NUR ---
RN NOTE Received call from Arun from lab, WBC is 31.2. Dr. Blue and Dr. Nobles notified.
[2021-12-29 16:30] LABS: FERRITIN 123 ng/mL (8-388)
[2021-12-29] MEDS: DIAZEPAM 10 MG TABLET PO SCH (18:24)
[2021-12-29] MEDS ORDERED: POTASSIUM CHLORIDE 20 MEQ TAB.PRT.SR PO ONE (18:30)
--- NOTE | 2021-12-29 18:57 | NUR ---
MS RN CLOSING NOTE Patient in bed, awake. A/O x 4, able to make needs known. Stable on room air, breathing evenly and unlabored. No SOB or s/s of distress noted. IV access on LFA #18 SL, intact and patent. Brar catheter in place draining to a yellow colored urine. All prescribed medications are administered. Safety precautions maintained: bed in low, locked position; siderails up x 2; call light within reach. Will endorse to next shift any KALEB.
--- NOTE | 2021-12-29 19:10 | NUR ---
RN NOTES: -RECEIVED AWAKE ON BED , LYING COMFORTABLY ON SEMI FOWLERS POSITION, A/OX4, ORIENTED TO UNIT AND STAFF, S/P BT X 1 , CONVERSANT AND COOPERATIVE TO CARE, FONG CATH IN SITE DRAINING INTO YELLOWISH URINE AT 100CC, NON WEIGHT BEARING TO LLE, LEFT LEG INCISION-DRY AND INTACT WITH KNEE IMMOBILIZER IN PLACE AT ALL TIMES,IV CANNULA ON THE LFA G#18 SL, FOR LABS IN THE MORNING, PT EVAL DONE TODAY, FOR PAIN MANAGEMENT, SHE VERBALIZED, SHE IS NOT IN PAIN AT THIS TIME, KEPT ON CLOSE WATCH. -SAFETY PRECAUTION OBSERVED, -KEPT CALL LIGHT WITHIN EASY REACH. -BED LOW AND LOCKED, SIDE RAILS UP X 2.
[2021-12-29 19:54] LABS: BASOPHILS % (AUTO) 0.1 % (0.0-2.0); EOSINOPHILS % (AUTO) 0.4 % (0.0-6.0); HEMATOCRIT 26 % (33-45); HEMOGLOBIN 8.5 g/dL (11.5-14.8); LYMPHOCYTES # (AUTO) 0.8 K/uL (0.8-4.8); LYMPHOCYTES % (AUTO) 3.2 % (20.0-44.0); MEAN CORPUSCULAR HGB CONC 33 g/dl (31.0-36.0); MEAN CORPUSCULAR VOLUME 84 fL (82-100); MONOCYTES # (AUTO) 1.3 K/uL (0.1-1.30); MONOCYTES % (AUTO) 4.9 % (2.0-12.0); NEUTROPHILS % (AUTO) 91.4 % (43.0-81.0); PLATELET COUNT (AUTO) 195 K/uL (150-450); RED BLOOD CELL COUNT(AUTO) 3.06 MIL/uL (4.0-5.2); WHITE BLOOD COUNT (AUTO) 26.3 K/uL (4.3-11.0)
[2021-12-29 20:00] LABS: BASOPHILS % (MANUAL) 0 % (0.0-2.0); EOSINOPHILS % (MANUAL) 0 % (0-4); LYMPHOCYTES % (MANUAL) 9 % (16-48); MONOCYTES % (MANUAL) 6 % (0-11.0); NEUTROPHILS % (MANUAL) 85 (42-76)
[2021-12-29] MEDS: MAG HYDROX/AL HYDROX/SIMETH 30 ML UDC PO PRN (20:26)
--- NOTE | 2021-12-29 20:35 | NUR ---
RN NOTES: COMPLAINED OF HAVING ABDOMINAL DISCOMFORT, UPON ASSESSMENT SHE VERBALIZED SHE FEEL LIKE SHE DID NOT DIGEST THE FOOD WELL, SHE EAT A LOT, REPOSITIONED, THEN SHE ASKED IF SHE CAN TAKE PRN MEDS, MAALOX GIVEN
--- NOTE | 2021-12-29 21:15 | NUR ---
RN NOTES: SHE ASKED FOR HER PAIN MEDICATION, RN DID NON PHARMACOLOGIC INTERVENTION FIRST, REPOSITIONED, WARM BLANKET AND DIM LIT. -OFFERED ORAL PAIN MEDICATION FIRST BECAUSE HER BP-92/60, SHE REFUSED SHE WANTS HER DILAUDID, THERE WAS SOME REDNESS ABOVE THE IV SITE,NOT WARM TO TOUCH, RN OFFERED TO CHANGE THE IV SITE FIRST BEFORE WE GIVE THE INJECTION, SHE REFUSED,RN EXPLAINED TO HER "WE WNAT TO MAKE SURE IV IS PATENT BEFORE WE CAN GIVE IV MEDS", RN FLUSHED IT, NO PAIN OR DISCOMFORT, SHE TOLD RN"IT IS OK , IT IS WORKING WELL, I DONT WANT ANOTHER INSERTION, JUST GIVE ME MY MEDICATION"' EXPLAINED TO HER RISK AND BENEFITS. -IV DILAUDID FOR PAIN GIVEN VERY SLOWLY, FLUSHED, GIVEN CALL LIGHT WITHIN EASY REACH.ON CLOSE WATCH.
[2021-12-29] MEDS: ZOLPIDEM TARTRATE 5 MG TABLET PO PRN (22:34)
--- NOTE | 2021-12-29 22:35 | NUR ---
RN NOTES: REQUEST FOR HER SLEEPING PILL, SHE SAID SHE COULD NOT SLEEP, LAST NIGHT SHE DID NOT SLEEP ALSO, GIVEN PER APTIENT REQUEST.
--- NOTE | 2021-12-29 23:53 | NUR ---
RN NOTES: LOVENOX NOT YET STARTED POST OP, LATEST HG-8.5, LOVENOX CAN BE STARTED ONLY IF HG>9.
--- NOTE | 2021-12-30 00:05 | NUR ---
RN NOTES: ABLE TO SLEEP AND REST, KEPT ON CLOSE VISUAL CHECK, CALL LIGHT KEPT WITHIN EASY REACH,NEEDS ANTICIPATED.
[2021-12-30] MEDS: HYDROMORPHONE INJ 2 MG/ML DISP.SYRIN IV PRN ×6 (01:37→22:27)
--- NOTE | 2021-12-30 01:38 | NUR ---
RN NOTES: UPON SHE WAKE, REPOSITIONED, COMP,LAINED OF PAIN 10/21,REQUESTING FOR HER PAIN MEDICATION, RN EXPLAINED WILL CHECK HER BP FIRST SHE AGREED. -BP-108/6 VA-80 SPO2-95% WITH O2 AT 1L/MIN VIA NC. -PAIN MEDICATION GIVEN PER PATIENT REQUEST, GIVEN IV SLOWLY.
[2021-12-30 06:01] LABS: CALCIUM, SERUM 7.9 mg/dL (8.5-10.1); CREATININE 0.7 mg/dL (0.6-1.3); POTASSIUM 3.5 mmol/L (3.5-5.1)
--- NOTE | 2021-12-30 06:11 | NUR ---
RN NOTES: PRN PAIN MEDICATION GIVEN PER PATIENT REQUEST, MORNING CARE DONE, CLEAN AND CHANGE, AFTER ROUTINE CLEANING DONE SHE REQUEST FOR HER PAIN MEDS.
[2021-12-30 06:37] LABS: BASOPHILS % (AUTO) 0.1 % (0.0-2.0); EOSINOPHILS % (AUTO) 0.8 % (0.0-6.0); HEMATOCRIT 25 % (33-45); LYMPHOCYTES # (AUTO) 0.8 K/uL (0.8-4.8); LYMPHOCYTES % (AUTO) 3.6 % (20.0-44.0); MEAN CORPUSCULAR HGB CONC 32 g/dl (31.0-36.0); MEAN CORPUSCULAR VOLUME 85 fL (82-100); MONOCYTES # (AUTO) 1.2 K/uL (0.1-1.30); MONOCYTES % (AUTO) 5.4 % (2.0-12.0); NEUTROPHILS # (AUTO) 20.3 K/uL (1.8-8.9); NEUTROPHILS % (AUTO) 90.1 % (43.0-81.0); PLATELET COUNT (AUTO) 185 K/uL (150-450); RED BLOOD CELL COUNT(AUTO) 2.93 MIL/uL (4.0-5.2); WHITE BLOOD COUNT (AUTO) 22.6 K/uL (4.3-11.0)
--- NOTE | 2021-12-30 06:58 | NUR ---
RN NOTES: ABLE TO SLEEP AND REST AFTER PAIN MEDICATION, REPOSITIONED, BLOOD TEST DONE TO F/U RESULT, ON PAIN MANAGEMENT,NON LABORED BREATHING,ENDORSED FOR CONTINUITY OF CARE.
--- NOTE | 2021-12-30 07:30 | NUR ---
MS RN OPENING NOTE Patient in bed, awake. A/O x 4, able to make needs known. Pt c/o pain and asking for pain meds. On room air, breathing evenly and unlabored. No SOB or s/s of distress noted. IV access on LFA #18 SL, intact and patent. Brar catheter in place draining to a clear, yellow colored urine. Safety precautions in place: bed in low, locked position; siderails up x 2; call light within reach. Will continue to monitor.
[2021-12-30 08:00] VITALS: BP 116/77
[2021-12-30] MEDS: CITALOPRAM HYDROBROMIDE 20 MG TABLET PO SCH (08:42)
[2021-12-30 16:00] VITALS: BP 133/85
[2021-12-30] MEDS: DIAZEPAM 10 MG TABLET PO SCH (17:59)
--- NOTE | 2021-12-30 19:30 | NUR ---
MS RN CLOSING NOTE Patient in bed, awake. A/O x 4, able to make needs known. Pt c/o pain and asking for pain meds. New onset pain on left foot. Doctor ordered doppler, xray (left foot and knee), and urinalysis, all performed during the shift. Stable on room air, breathing evenly and unlabored. No SOB or s/s of distress noted. IV access on LFA #18 SL, intact and patent. Brar catheter in place draining to a clear, yellow colored urine. Prescribed medications administered. Safety precautions in place: bed in low, locked position; siderails up x 2; call light within reach. Will endorse to next shift any KALEB.
--- NOTE | 2021-12-30 19:31 | NUR ---
RN OPENING NOTE PATIENT IN BED, A/O X 3 ABLE TO MAKE NEEDS KNOWN. PATIENT IS ON RA, TOLERATING WELL. BREATHING EVEN AND UNLABORED. PATIENT NOTED TO HAVE A BREACE AND DRESSING ON THE LEFT LOWER EXT. PATIENT DOES NOT COMPLAIN OF ANY PAIN AT THIS TIME, BUT REQUESTS FOR HER TO RECEIVE AMBIEN TONIGHT. PATIENT HAS A FONG CATHETER PRESENT DRAINING YELLOW URINE VIA GRAVITY. PATIENT'S LFA 18 G IV ACCESS LEAKING, WILL INSERT NEW IV ACCESS. SAFETY MEASURES IN PLACE: BED LOCKED AND IN LOWEST POSITION, CALL LIGHT WITHIN REACH, SIDE RAILS UP. WILL MONITOR PATIENT CLOSELY.
[2021-12-30 20:00] VITALS: BP 112/65
[2021-12-30] MEDS: ZOLPIDEM TARTRATE 5 MG TABLET PO PRN (21:01)
--- NOTE | 2021-12-30 21:01 | NUR ---
RN NOTE SHAYIEN GIVEN PER PATIENT'S REQUEST TO HELP HER SLEEP.
--- NOTE | 2021-12-30 22:27 | NUR ---
RN NOTE PATIENT COMPLAINING OF 10/10 PAIN ON HER LEFT LEG. DILAUDID IV GIVEN. WILL ASSESS MED EFFECTIVENESS AND PAIN AT A LATER TIME
[2021-12-31] MEDS: HYDROMORPHONE INJ 2 MG/ML DISP.SYRIN IV PRN ×5 (02:31→18:50)
[2021-12-31 03:58] LABS: BILIRUBIN,URINE NEGATIVE (NEGATIVE); COLOR,URINE YELLOW (YELLOW); LEUKOCYTE ESTERASE ,URINE NEGATIVE (NEGATIVE); NITRITE, URINE NEGATIVE (NEGATIVE); PROTEIN,URINE 30 mg/dl (NEGATIVE); UGLUCOSE NEGATIVE (NEGATIVE); UROBILINOGEN,URINE 0.2 EU/dL (0.2)
--- NOTE | 2021-12-31 07:15 | NUR ---
RN OPENING NOTE PATIENT IN BED, A/O X 3 ABLE TO MAKE NEEDS KNOWN. PATIENT IS ON RA, TOLERATING WELL. BREATHING EVEN AND UNLABORED. DRESSING DRY AND INTACT ON THE LEFT LOWER EXT. PATIENT DOES NOT COMPLAIN OF ANY PAIN AT THIS TIME. PATIENT HAS A FONG CATHETER PRESENT DRAINING YELLOW URINE VIA GRAVITY. SAFETY MEASURES IN PLACE: BED LOCKED AND IN LOWEST POSITION, CALL LIGHT WITHIN REACH, SIDE RAILS UP. WILL MONITOR PATIENT CLOSELY.
--- NOTE | 2021-12-31 07:28 | NUR ---
RN CLOSING NOTE PATIENT IN BED, A/O X 3 ABLE TO MAKE NEEDS KNOWN. PATIENT IS ON RA, TOLERATING WELL. BREATHING EVEN AND UNLABORED. PAIN MANAGED WITH DILAUDID IV AND ICE PACKS. PATIENT HAS A FONG CATHETER PRESENT DRAINING YELLOW URINE VIA GRAVITY. RFA 22 G PATENT AND INTACT. SAFETY MEASURES IN PLACE: BED LOCKED AND IN LOWEST POSITION, CALL LIGHT WITHIN REACH, SIDE RAILS UP. ALL NEEDS MET AND ATTENDED. ALL ORDERS CARRIED OUT.
[2021-12-31 07:38] LABS: BASOPHILS % (AUTO) 0.2 % (0.0-2.0); EOSINOPHILS % (AUTO) 0.8 % (0.0-6.0); HEMATOCRIT 24 % (33-45); HEMOGLOBIN 7.8 g/dL (11.5-14.8); LYMPHOCYTES # (AUTO) 0.8 K/uL (0.8-4.8); LYMPHOCYTES % (AUTO) 4.9 % (20.0-44.0); MEAN CORPUSCULAR HGB CONC 33 g/dl (31.0-36.0); MEAN CORPUSCULAR VOLUME 84 fL (82-100); MONOCYTES # (AUTO) 0.8 K/uL (0.1-1.30); MONOCYTES % (AUTO) 4.7 % (2.0-12.0); NEUTROPHILS # (AUTO) 14.5 K/uL (1.8-8.9); NEUTROPHILS % (AUTO) 89.4 % (43.0-81.0); PLATELET COUNT (AUTO) 226 K/uL (150-450); RED BLOOD CELL COUNT(AUTO) 2.86 MIL/uL (4.0-5.2); WHITE BLOOD COUNT (AUTO) 16.2 K/uL (4.3-11.0)
[2021-12-31 08:00] VITALS: BP 112/71
[2021-12-31 08:03] LABS: BACTERIA,URINE Few /HPF (None Seen); SQUAMOUS EPITHELIAL CELL,UR Few /HPF (None Seen)
[2021-12-31 08:04] LABS: URINE AMORPHOUS URATE Many /HPF (None Seen)
[2021-12-31 08:10] LABS: CALCIUM, SERUM 8.1 mg/dL (8.5-10.1); CREATININE 0.6 mg/dL (0.6-1.3); POTASSIUM 3.1 mmol/L (3.5-5.1)
[2021-12-31] MEDS: CITALOPRAM HYDROBROMIDE 20 MG TABLET PO SCH (08:35)
[2021-12-31] MEDS ORDERED: ENOXAPARIN SODIUM 40 MG/0.4 ML DISP.SYRIN SQ SCH (09:00)
--- NOTE | 2021-12-31 09:02 | NUR ---
RN NOTE HELD LOVENOX PER DOCTOR'S ORDER. HGB IS 7.8 AND ORDERED TO HOLD MED IF HGB IS <9.
[2021-12-31] MEDS ORDERED: HYDR-3980 PO (10:04)
[2021-12-31] MEDS ORDERED: ENOX40DI SQ (10:04)
[2021-12-31] MEDS: POTASSIUM CHLORIDE 20 MEQ TAB.PRT.SR PO SCH ×2 (10:18→11:03)
[2021-12-31] MEDS: METRONIDAZOLE 500 MG TABLET PO SCH ×2 (11:04→16:41)
[2021-12-31] MEDS: MAG HYDROX/AL HYDROX/SIMETH 30 ML UDC PO PRN (12:14)
[2021-12-31 16:00] VITALS: BP 158/70
[2021-12-31 16:09] LABS: BAND % (MANUAL) 2 % (0.0-5.0); EOSINOPHILS % (MANUAL) 1 % (0-4); LYMPHOCYTES % (MANUAL) 4 % (16-48); MONOCYTES % (MANUAL) 4 % (0-11.0); NEUTROPHILS % (MANUAL) 89 (42-76)
[2021-12-31] MEDS ORDERED: METR500T PO (16:21)
[2021-12-31] MEDS: DIAZEPAM 10 MG TABLET PO SCH (18:22)
--- NOTE | 2021-12-31 19:27 | NUR ---
RN CLOSING NOTE PATIENT DISCHARGED FROM THE HOSPITAL PER DOCTOR'S ORDER. DISCHARGE PAPERS GIVEN TO PATIENT. IV LINE AND FC REMOVED. WOUND DRESSING DONE. HEALTH TEACHING RENDERED. PATIENT WITH STABLE VITALS, ALERT AND ORIENTED. ASSISTED PATIENT TO HER CAR VIA WHEELCHAIR. DISCHARGED.
== END 2021-12-31 19:45 | disposition home or self-care (01) | DRG 481 ==
LOC: ER 16:32 → MED 20:35
PROVIDERS: ADMIT Nurse Practitioner Acute Care; ATTEND Internal Medicine
PROC: 05HB33Z Insertion of Infusion Device into Right Basilic Vein, Percutaneous Approach (ICD-10-PCS; 2021-12-27)
PROC: 0QS704Z Reposition Left Upper Femur with Internal Fixation Device, Open Approach (ICD-10-PCS; principal; 2021-12-28)
PROC: 30233N1 Transfusion of Nonautologous Red Blood Cells into Peripheral Vein, Percutaneous Approach (ICD-10-PCS; 2021-12-28)
DX: S72.402A Unspecified fracture of lower end of left femur, initial encounter for closed fracture (principal); M97.12XA Periprosthetic fracture around internal prosthetic left knee joint, initial encounter; Y92.009 Unspecified place in unspecified non-institutional (private) residence as the place of occurrence of the external cause; D75.839 Thrombocytosis, unspecified; W10.9XXA Fall (on) (from) unspecified stairs and steps, initial encounter; Y93.01 Activity, walking, marching and hiking; G20 Parkinson's disease; Z79.899 Other long term (current) drug therapy; Z20.822 Contact with and (suspected) exposure to COVID-19; M43.6 Torticollis; F41.9 Anxiety disorder, unspecified; D64.9 Anemia, unspecified; F41.0 Panic disorder [episodic paroxysmal anxiety]; G25.5 Other chorea; I10 Essential (primary) hypertension; Z96.651 Presence of right artificial knee joint; D72.829 Elevated white blood cell count, unspecified; N76.0 Acute vaginitis
CPT/HCPCS: 36415; 71045-TC; 73552; 73564-TC; 73610-TC; 73630-TC; 73700-TC; 80048-TC; 80053-TC; 81001; 82728-TC; 83540-TC; 83735-TC; 84100-TC; 85025-TC; 85027-TC; 85610-TC; 86850-TC; 87040-TC; 87081-TC; 87086-TC; 93307-TC; 93971-TC; 94799-TC; 97110-TC; 97116-TC; 97530-TC; A6253; A6403; C9803; G0378; J0690; J1170; J1885; J2250; J2270; J2405; J2704; J2765; J3010; J3490; J7030; J7040; J7060; P9016

== ENCOUNTER 2022-03-18 02:13 | Emergency (ER) | payer MEDICAID, OTHER ==
[~2022-03-18] VITALS: Ht 167.6 cm; Wt 63.5 kg
[~2022-03-18 02:13] MED LIST changes: +ENOX40DI SQ; +METR500T PO
[2022-03-18] MEDS ORDERED: IV NS 0.9% 1,000 ML BAG IV ONE (03:00)
[2022-03-18] MEDS ORDERED: SUMATRIPTAN SUCCINATE 6 MG/0.5 ML VIAL SQ ONE ×2 (03:00→03:06)
[2022-03-18] MEDS ORDERED: METOCLOPRAMIDE HCL 10 MG/2 ML VIAL IV ONE (03:00)
[2022-03-18] MEDS ORDERED: METOCLOPRAMIDE HCL 10 MG/2 ML VIAL ONE (03:06)
--- NOTE | 2022-03-18 03:26 | NUR ---
BIBDAUGHTER. FRONT AND BACK OF HEADACHE X 6 HRS. TYLENOL 2HRS AGO. DID NOT HELP. NO NEURO DEFECITS NOTED ORIENTED X4 BREATHING UNLABORED. PLACED ON MONITOR AND V/S WNL.
--- NOTE | 2022-03-18 03:32 | NUR ---
22g iv started at rf. saline locked.
--- NOTE | 2022-03-18 04:38 | NUR ---
PT SLEEPING COMFORTABLY V/S WNL
--- NOTE | 2022-03-18 05:28 | NUR ---
Patient discharged to home in stable condition. Written and verbal after care instructions given. Patient verbalizes understanding of instruction.IV removed. Catheter intact and site benign. Pressure and 4x4 applied to site. No bleeding noted. Picked up by daughter.
[2022-03-18 06:08] VITALS: BP 132/66
== END 2022-03-18 05:30 | disposition home or self-care (01) ==
LOC: ER 02:16
DX: R51.9 Headache, unspecified (principal); G20 Parkinson's disease; Z79.899 Other long term (current) drug therapy
CPT/HCPCS: 99285; 96374; 70450; 96361; 96372; J3030; J2765; J7030

== ENCOUNTER 2022-04-04 13:54 | Emergency (ER) | payer BC, OTHER ==
[~2022-04-04] VITALS: Ht 165.1 cm; Wt 72.6 kg
--- NOTE | 2022-04-04 14:20 | NUR ---
"Started having pressure in chest this morning not going away"
--- NOTE | 2022-04-04 14:45 | NUR ---
civil laboratory technician at bedside
[2022-04-04 14:59] LABS: BASOPHILS # (AUTO) 0.1 K/uL (0.0-0.2); BASOPHILS % (AUTO) 0.7 % (0.0-2.0); EOSINOPHILS % (AUTO) 1.5 % (0.0-6.0); HEMATOCRIT 34 % (33-45); LYMPHOCYTES # (AUTO) 1.6 K/uL (0.8-4.8); LYMPHOCYTES % (AUTO) 15.3 % (20.0-44.0); MEAN CORPUSCULAR HGB CONC 33 g/dl (31.0-36.0); MEAN CORPUSCULAR VOLUME 88 fL (82-100); MONOCYTES # (AUTO) 0.6 K/uL (0.1-1.30); MONOCYTES % (AUTO) 6.1 % (2.0-12.0); NEUTROPHILS # (AUTO) 7.7 K/uL (1.8-8.9); NEUTROPHILS % (AUTO) 76.4 % (43.0-81.0); PLATELET COUNT (AUTO) 392 K/uL (150-450); RED BLOOD CELL COUNT(AUTO) 3.83 MIL/uL (4.0-5.2); WHITE BLOOD COUNT (AUTO) 10.1 K/uL (4.3-11.0)
[2022-04-04] MEDS ORDERED: DIAZEPAM 5 MG TABLET PO ONE (15:00)
[2022-04-04] MEDS ORDERED: LIDOCAINE 5% (PATCH) 1 EA PATCH TP SCH (15:00)
[2022-04-04] MEDS ORDERED: MORPHINE SULFATE INJ 2 MG/ML DISP.SYRIN IV ONE (15:00)
[2022-04-04] MEDS ORDERED: KETOROLAC TROMETHAMINE INJ 30 MG/ML VIAL IV ONE (15:00)
[2022-04-04 15:10] LABS: CALCIUM, SERUM 8.1 mg/dL (8.5-10.1); CARBON DIOXIDE 23 mmol/L (21-32); CHLORIDE 106 mmol/L (98-107); CREATININE 0.9 mg/dL (0.6-1.3); GLUCOSE 201 mg/dL (74-106); POTASSIUM 3.5 mmol/L (3.5-5.1); SODIUM SERUM 140 mmol/L (136-145); UREA NITROGEN, BLOOD 19 mg/dL (7-18)
[2022-04-04] MEDS ORDERED: DIAZEPAM 5 MG TABLET ONE (15:22)
[2022-04-04] MEDS ORDERED: KETOROLAC TROMETHAMINE 15 MG/ML VIAL ONE (15:22)
[2022-04-04] MEDS ORDERED: LIDOCAINE 5% (PATCH) 1 EA PATCH TP ONE (15:22)
[2022-04-04] MEDS ORDERED: MORPHINE SULFATE INJ 2 MG/ML DISP.SYRIN ONE (15:23)
[2022-04-04 15:28] LABS: ALANINE AMINOTRANSFERASE 15 U/L (12-78); ALBUMIN 3.2 g/dL (3.4-5.0); ALKALINE PHOSPHATASE 153 U/L (46-116); ASPARTATE AMINOTRANSFERASE 12 U/L (15-37); BILIRUBIN,TOTAL 0.1 mg/dL (0.2-1.0); TOTAL PROTEIN, SERUM 6.7 g/dL (6.4-8.2)
[2022-04-04] MEDS ORDERED: DIAZ5TAB PO ×2 (16:07→16:43)
--- NOTE | 2022-04-04 16:31 | NUR ---
IV removed. Catheter intact and site benign. Pressure and 4x4 applied to site. No bleeding noted.
[2022-04-04 16:32] VITALS: BP 96/61
--- NOTE | 2022-04-04 16:32 | NUR ---
Patient discharged to home in stable condition. Written and verbal after care instructions given. Patient verbalizes understanding of instruction.
== END 2022-04-04 16:45 | disposition home or self-care (01) ==
LOC: ER 14:53
DX: R07.89 Other chest pain (principal); M62.838 Other muscle spasm; G20 Parkinson's disease; Z79.899 Other long term (current) drug therapy
CPT/HCPCS: 99285; 96374; 71045; 96375; 93005; 85025; 80048; 80076; 36415; 84484; J2270; J1885

== ENCOUNTER 2022-05-01 21:52 | Emergency (ER) | payer BC, OTHER ==
[~2022-05-01] VITALS: Ht 167.6 cm; Wt 63.5 kg
[~2022-05-01 21:52] MED LIST changes: +DIAZ5TAB PO
[2022-05-01] MEDS ORDERED: MORPHINE SULFATE INJ 2 MG/ML DISP.SYRIN IM ONE (23:00)
[2022-05-01] MEDS ORDERED: diphenhydrAMINE HCL 25 MG CAPSULE PO ONE (23:00)
[2022-05-01] MEDS ORDERED: diphenhydrAMINE HCL 25 MG CAPSULE ONE (23:10)
[2022-05-01] MEDS ORDERED: MORPHINE SULFATE INJ 4 MG/ML DISP.SYRIN ONE (23:10)
[2022-05-02 00:08] VITALS: BP 110/66
--- NOTE | 2022-05-02 00:08 | NUR ---
Patient discharged to home in stable condition. Written and verbal after care instructions given. Patient verbalizes understanding of instruction.
== END 2022-05-02 00:08 | disposition home or self-care (01) ==
LOC: ER 22:09
DX: R21 Rash and other nonspecific skin eruption (principal); M54.2 Cervicalgia; G20 Parkinson's disease; Z79.899 Other long term (current) drug therapy
CPT/HCPCS: 99283; 96372; Q0163; J2270